=== PATIENT | female | born 1985 | race Two or more races ===

== ENCOUNTER 2017-01-07 13:40 | Emergency (ER) | payer OTHER ==
[~2017-01-07] VITALS: Ht 157.5 cm; Wt 59.0 kg
[~2017-01-07 13:40] MED LIST: PREN1TAB27 PO
[2017-01-07 14:20] LABS: HEMATOCRIT 39.4 % (34.6-47.8); HEMOGLOBIN 13.2 g/dL (11.7-16.4); WHITE BLOOD COUNT 8.7 x10^3/uL (3.4-10)
[2017-01-07 14:29] LABS: BLOOD UREA NITROGEN 8 mg/dL (7-18)
[2017-01-07 15:33] LABS: PATH.CAST-FLAG NOT PRESENT; SPERM-FLAG NOT PRESENT; SRC-FLAG NOT PRESENT; XTAL-FLAG NOT PRESENT; YLC-FLAG NOT PRESENT
[2017-01-07 16:13] VITALS: BP 108/56
== END 2017-01-07 16:33 | disposition home or self-care (01) ==
LOC: ED 16:15
DX: O20.0 Threatened abortion (principal); O23.41 Unspecified infection of urinary tract in pregnancy, first trimester; Z3A.01 Less than 8 weeks gestation of pregnancy
CPT/HCPCS: 36415; 76801; 80048; 81001; 82040; 84702; 85025; 86901; 87086; 99285

== ENCOUNTER 2017-12-14 01:30 | Inpatient (IN) | payer OTHER ==
[~2017-12-14] VITALS: Ht 157.5 cm; Wt 68.1 kg
[2017-12-14] MEDS ORDERED: OXYTOCIN 30U/ 0.9% NaCL 500ML 500 ML IV ONE (01:47)
[2017-12-14] MEDS: D5%-LACTATED RINGERS 1,000 ML IV SCH ×2 (01:47→09:47)
[2017-12-14] MEDS ORDERED: NEWBORN KIT ONE (01:49)
[2017-12-14] MEDS ORDERED: FENTANYL PF 100 MCG/2ML IV PRN (02:00)
[2017-12-14] MEDS ORDERED: TERBUTALINE 1 MG/ML, 1ML IVPush PRN ×2 (02:00)
[2017-12-14] MEDS ORDERED: ONDANSETRON 2MG/ML, 2ML IVPush PRN (02:00)
[2017-12-14] MEDS ORDERED: FENTANYL PF 100 MCG/2ML IVPush PRN (02:00)
[2017-12-14] MEDS ORDERED: METOCLOPRAMIDE 5 MG/ML, 2ML IVPush PRN (02:00)
[2017-12-14] MEDS ORDERED: CALCIUM CARBONATE 500 MG TAB.CHEW PO PRN (02:00)
[2017-12-14] MEDS ORDERED: SODIUM CITRATE/CITRIC ACID 30 ML UDC PO PRN (02:00)
[2017-12-14] MEDS ORDERED: TERBUTALINE 1 MG/ML, 1ML SQ PRN (02:00)
[2017-12-14] MEDS ORDERED: ALUMINUM/MAG/SIMETHICONE 30 ML UDC PO PRN (02:00)
[2017-12-14] MEDS ORDERED: FENTANYL/BUPIV./NS/PF 250 ML EPIDCONT ONE (02:09)
[2017-12-14] MEDS ORDERED: OXYTOCIN 30U/ 0.9% NaCL 500ML 500 ML ONE (02:09)
[2017-12-14] MEDS: LACTATED RINGERS 1,000 ML IVBOLUS PRN ×2 (02:15→03:25)
[2017-12-14 02:17] LABS: BASOPHILS # (AUTO) 0.11 x10^3/uL (0-0.1); BASOPHILS % (AUTO) 1 % (0-1); EOSINOPHILS # (AUTO) 0.03 x10^3/uL (0-0.4); EOSINOPHILS % (AUTO) 0 % (1-7); LYMPHOCYTES # (AUTO) 1.86 x10^3/uL (1-3.4); LYMPHOCYTES % (AUTO) 17 % (22-44); MD NO; MEAN CORPUSCULAR HEMOGLOBIN 30.1 pg (27.0-34.8); MEAN CORPUSCULAR HGB CONC 33.9 g/dL (32.4-35.8); MEAN CORPUSCULAR VOLUME 88.8 fL (80-100); MEAN PLATELET VOLUME 7.7 fL (7.4-10.4); MONOCYTES # (AUTO) 0.82 x10^3/uL (0.2-0.8); MONOCYTES % (AUTO) 8 % (2-9); NEUTROPHILS # (AUTO) 7.85 x10^3/uL (1.8-6.8); NEUTROPHILS % (AUTO) 74 % (42-75); PLATELET COUNT 264 x10^3/uL (130-400); RED BLOOD COUNT 4.38 x10^6/uL (3.82-5.3); RED CELL DISTRIBUTION WIDTH 14.6 % (9.6-15.2)
[2017-12-14] MEDS ORDERED: OXYTOCIN 30U/ 0.9% NaCL 500ML 500 ML IV PRN (03:29)
[2017-12-14] MEDS ORDERED: BUPIVACAINE/PF 0.5% ONE (03:34)
[2017-12-14] MEDS: LACTATED RINGERS 1,000 ML IV SCH ×4 (04:01→12:01)
[2017-12-14] MEDS ORDERED: FENTANYL/BUPIV./NS/PF 250 ML EPIDCONT SCH (04:01)
[2017-12-14] MEDS ORDERED: EPHEDRINE 50 MG/ML, 1ML ONE (04:13)
[2017-12-14] MEDS: EPHEDRINE 50 MG/ML, 1ML IVPush PRN ×2 (04:16→04:22)
[2017-12-14] MEDS: OXYTOCIN 30U/ 0.9% NaCL 500ML 500 ML IV SCH ×2 (09:49→19:49)
[2017-12-14] MEDS ORDERED: MISOPROSTOL 200 MCG TABLET PR PRN (10:00)
[2017-12-14] MEDS ORDERED: ACETAMINOPHEN 325 MG TABLET PO PRN ×2 (10:00)
[2017-12-14] MEDS ORDERED: HYDROcodone/APAP 5/325 TABLET PO PRN ×2 (10:00)
[2017-12-14 13:00] VITALS: BP 83/50
[2017-12-14 17:00] VITALS: BP 82/55
[2017-12-14] MEDS: IBUPROFEN 600 MG TABLET PO PRN (17:29)
[2017-12-14] MEDS: DOCUSATE 100 MG CAPSULE PO PRN (17:29)
[2017-12-14 18:41] LABS: BASOPHILS # (AUTO) 0.04 x10^3/uL (0-0.1); BASOPHILS % (AUTO) 0 % (0-1); EOSINOPHILS # (AUTO) 0.05 x10^3/uL (0-0.4); EOSINOPHILS % (AUTO) 0 % (1-7); LYMPHOCYTES % (AUTO) 12 % (22-44); MD NO; MEAN CORPUSCULAR HEMOGLOBIN 30.2 pg (27.0-34.8); MEAN CORPUSCULAR HGB CONC 33.5 g/dL (32.4-35.8); MEAN CORPUSCULAR VOLUME 90.1 fL (80-100); MEAN PLATELET VOLUME 7.8 fL (7.4-10.4); MONOCYTES # (AUTO) 0.95 x10^3/uL (0.2-0.8); MONOCYTES % (AUTO) 6 % (2-9); NEUTROPHILS # (AUTO) 12.48 x10^3/uL (1.8-6.8); NEUTROPHILS % (AUTO) 82 % (42-75); PLATELET COUNT 246 x10^3/uL (130-400); RED BLOOD COUNT 3.81 x10^6/uL (3.82-5.3); RED CELL DISTRIBUTION WIDTH 14.9 % (9.6-15.2)
[2017-12-14 21:10] VITALS: BP 90/60
[2017-12-15 00:16] VITALS: BP 93/60
[2017-12-15] MEDS: IBUPROFEN 600 MG TABLET PO PRN ×4 (00:16→18:21)
[2017-12-15] MEDS: OXYTOCIN 30U/ 0.9% NaCL 500ML 500 ML IV SCH (05:49)
[2017-12-15 08:45] VITALS: BP 90/60
[2017-12-15] MEDS ORDERED: PRENATAL VIT/IRON/FA 1 EACH TABLET PO SCH (09:00)
[2017-12-15] MEDS: DOCUSATE 100 MG CAPSULE PO PRN (09:20)
[2017-12-15] MEDS ORDERED: IBUP-1222 PO (12:22)
[2017-12-15] MEDS ORDERED: HYDR-3240 PO (12:22)
[2017-12-15] MEDS ORDERED: DOCU-131 PO (12:23)
== END 2017-12-15 19:09 | disposition home or self-care (01) | DRG 807 ==
LOC: LDOP 01:30 → LDIP 01:49 → 2NW 12:52
PROVIDERS: ADMIT Obstetrics & Gynecology; ATTEND Obstetrics & Gynecology
PROC: 10E0XZZ Delivery of Products of Conception, External Approach (ICD-10-PCS; principal; 2017-12-14)
PROC: 0KQM0ZZ Repair Perineum Muscle, Open Approach (ICD-10-PCS; 2017-12-14)
PROC: 0W8NXZZ Division of Female Perineum, External Approach (ICD-10-PCS; 2017-12-14)
PROC: 3E0R3BZ Introduction of Anesthetic Agent into Spinal Canal, Percutaneous Approach (ICD-10-PCS; 2017-12-14)
PROC: 00HU33Z Insertion of Infusion Device into Spinal Canal, Percutaneous Approach (ICD-10-PCS; 2017-12-14)
DX: O24.420 Gestational diabetes mellitus in childbirth, diet controlled (principal); Z37.0 Single live birth; O69.81X0 Labor and delivery complicated by cord around neck, without compression, not applicable or unspecified; Z3A.38 38 weeks gestation of pregnancy; Z90.49 Acquired absence of other specified parts of digestive tract; O70.1 Second degree perineal laceration during delivery
CPT/HCPCS: 36415; 82962; 85025; 86850; 86900; 99285; G0378; J2590; J7120